=== PATIENT | female | born 1995 | race Two or more races ===

== ENCOUNTER 2023-11-28 13:39 | Emergency (ER) | payer OTHER ==
[~2023-11-28] VITALS: Ht 160 cm; Wt 86.2 kg
[2023-11-28] MEDS ORDERED: 0.9 % SODIUM CHLORIDE 1,000 ML IV STA (14:43)
[2023-11-28 15:32] LABS: HEMATOCRIT 35.3 % (36.0-45.00); HEMOGLOBIN 11.8 g/dL (12.0-15.00); MEAN CELL VOLUME 78.4 fL (80.00-100.00); MEAN CORPUSCULAR HEMOGLOBIN 26.1 pg (27.00-32.0); MEAN CORPUSCULAR HGB CONC 33.4 g/dl (32.0-36.0); PLATELET COUNT 174 K/uL (150-450); RED BLOOD COUNT 4.51 M/uL (4.00-6.00); RED CELL DISTRIBUTION WIDTH 15.5 % (11.5-14.5)
[2023-11-28 15:49] LABS: CREATININE SERUM 0.76 mg/dL (0.55-1.02); GFR 91.99; POTASSIUM 3.7 mEq/L (3.5-5.1)
[2023-11-28] MEDS ORDERED: FAMOTIDINE/PF 20 MG in 0.9 % SODIUM CHLORIDE 8 ML IV PUSH STA (16:33)
[2023-11-28] MEDS ORDERED: DIPHENOXYLATE HCL/ATROPINE 1 UDTAB TABLET PO ONE (16:45)
[2023-11-28 17:22] LABS: URINE APPEARANCE Clear; URINE BILIRRUBIN Negative (NEGATIVE); URINE BLOOD Trace; URINE COLOR Yellow; URINE GLUCOSE Negative (NEGATIVE); URINE LEUKOCYTE Negative; URINE NITRATE Negative; URINE UROBILINOGEN 0.2 E.U./dl
[2023-11-28 17:26] LABS: URINE EPITHELIAL CELLS 9.7 uL (0.0-38.8); URINE RBC 19.8 uL (0.0-20.8); URINE WBC 12.5 uL (0.0-23.2)
[2023-11-28 17:28] LABS: URINE BACTERIA > 9821.5 uL (0.0-1933); URINE PROTEIN 100 (NEGATIVE)
[2023-11-28] MEDS ORDERED: ZOFRAN8 MG PO (18:18)
[2023-11-28] MEDS ORDERED: PEPCID AC20 MG PO (18:18)
== END 2023-11-28 18:24 | disposition home or self-care (01) ==
LOC: ER 13:40
PROVIDERS: Emergency Medicine
DX: B34.9 Viral infection, unspecified (principal); K52.9 Noninfective gastroenteritis and colitis, unspecified; Z20.822 Contact with and (suspected) exposure to COVID-19